=== PATIENT | male | born 1975 | race Caucasian/White ===

== ENCOUNTER 2019-08-02 09:31 | Emergency (ER) | payer MEDICAID ==
[~2019-08-02] VITALS: Ht 170.2 cm; Wt 95.5 kg
[2019-08-02] MEDS ORDERED: HYDR25TA PO (09:36)
[2019-08-02] MEDS ORDERED: AMLO2.5T4 PO (09:36)
[2019-08-02] MEDS ORDERED: DiphenhydrAMINE HCL 50 MG/ML VIAL IVP ONE (09:45)
[2019-08-02] MEDS ORDERED: FAMOTIDINE 10 MG/ML 2 ML VIAL IVP ONE (09:45)
[2019-08-02] MEDS ORDERED: EPINEPHrine 1:1,000 [1 MG/ML] AMP IM ONE (09:45)
[2019-08-02] MEDS ORDERED: SODIUM CHLORIDE 0.9% 1,000 ML IV ONE (09:45)
[2019-08-02] MEDS ORDERED: MethylPREDNISolone SOD SUCC 125 MG/2 ML VIAL IVP ONE (09:45)
[2019-08-02 12:14] VITALS: BP 122/57
== END 2019-08-02 12:36 | disposition home or self-care (01) ==
LOC: EMS 09:32
DX: T63.441A Toxic effect of venom of bees, accidental (unintentional), initial encounter (principal); T78.2XXA Anaphylactic shock, unspecified, initial encounter; I10 Essential (primary) hypertension; Z79.899 Other long term (current) drug therapy; Z91.030 Bee allergy status; X58.XXXA Exposure to other specified factors, initial encounter
CPT/HCPCS: 96372; 96374; 96375; 99291; J0171; J1200; J2930; J3490; J7030